=== PATIENT | female | born 1975 | race Caucasian/White ===

== ENCOUNTER 2017-05-20 06:52 | Emergency (ER) | payer OTHER ==
[~2017-05-20] VITALS: Ht 157.5 cm; Wt 87.1 kg
[2017-05-20 06:52] VITALS: BP_SYST 151
[2017-05-20] MEDS ORDERED: NACL 0.9% 1,000 ML IV ONE (07:16)
[2017-05-20] MEDS ORDERED: ASPIRIN 81 MG TAB.CHEW PO ONE (07:30)
[2017-05-20 07:43] LABS: BASOPHILS % (AUTO) 0.6 % (0.0-2.0); EOSINOPHILS # (AUTO) 0.1 K/uL (0.0-0.4); EOSINOPHILS % (AUTO) 1.5 % (0.0-4.0); HEMATOCRIT 41.3 % (36-48); HEMOGLOBIN 13.9 g/dL (12.0-16.0); LYMPHOCYTES # (AUTO) 2.2 K/uL (1.0-5.5); LYMPHOCYTES % (AUTO) 32.9 % (20.5-51.5); MEAN CORPUSCULAR HEMOGLOBIN 30 pg (27-31); MEAN CORPUSCULAR HGB CONC 34 % (32-36); MEAN CORPUSCULAR VOLUME 89 fL (79.0-98.0); MONOCYTES # (AUTO) 0.5 K/uL (0.0-1.0); MONOCYTES % (AUTO) 7.1 % (1.7-9.3); NEUTROPHILS % (AUTO) 57.9 % (40.0-70.0); PLATELET COUNT (AUTO) 240 K/uL (130-430); RED BLOOD CELL COUNT(AUTO) 4.64 MIL/uL (4.2-6.2); RED CELL DISTRIBUTION WIDTH 12.1 % (9.0-15.0); WHITE BLOOD COUNT (AUTO) 6.8 K/uL (4.8-10.8)
[2017-05-20 08:06] LABS: CREATININE 0.51 mg/dL (0.55-1.30); POTASSIUM 3.8 mmol/L (3.5-5.1)
[2017-05-20 08:10] LABS: PROTHROMBIN TIME 10.1 SECS (9.5-12.5)
[2017-05-20 08:22] LABS: ALBUMIN 3.2 g/dL (3.4-4.8); TOTAL BILIRUBIN 0.3 mg/dL (0.0-1.0)
[2017-05-20 09:20] VITALS: BP_SYST 140
== END 2017-05-20 09:20 | disposition home or self-care (01) ==
LOC: SED 06:52
DX: M25.512 Pain in left shoulder (principal)
CPT/HCPCS: 36415; 71045; 80053; 81025; 84484; 85025; 85610; 85730; 93005; 96360; 99285; J7030

== ENCOUNTER 2018-08-12 14:05 | Emergency (ER) | payer OTHER ==
[~2018-08-12] VITALS: Ht 157.5 cm; Wt 80.3 kg
[2018-08-12 14:05] VITALS: BP_SYST 141
--- NOTE | 2018-08-12 14:05 | NUR ---
BROUGHT BACK TO BED #5 AND TRIAGED. REPORT GIVEN TO GABY
--- NOTE | 2018-08-12 14:18 | NUR ---
PATIENT CAME IN FOR LACERATION ON RIGHT THUMB. PATIENT SAID SHE WAS WASHING DISHES AND CUT IT ON A GLASS CUP. PATIENT NOT COMPLAINING OF PAIN, SOB, NAUSEA, OR VOMITING. PATIENT ALERT AND ORIENTED X4. PATIENT ANXIOUS BECAUSE YOU CAN SEE THE VEINS. Addendum: 08/12/18 at 1424 by THERESA NO ACTIVE BLEEDING. BLEEDING IS CONTROLED.
--- NOTE | 2018-08-12 14:40 | NUR ---
LACERATION STARTED BLEEDING. GAVE PATIENT GAUZE AND TOLD TO APPLY PRESSURE.
--- NOTE | 2018-08-12 14:41 | NUR ---
ER Dr. MADDEN at bedside examining patient.
[2018-08-12] MEDS ORDERED: BACITRACIN/POLYMYXIN B SULFATE 30 GM TOPICAL OINT. TP ONE (15:00)
[2018-08-12] MEDS ORDERED: DIPH-TET-PERTUS Vaccine 0.5 ML VIAL (ADACEL) I.M. ONE (15:00)
[2018-08-12] MEDS ORDERED: BACITRACIN 1 GM OINT TP ONE (15:08)
--- NOTE | 2018-08-12 15:08 | NUR ---
Site to right thumb cleansed with ns. Site measures approximatel 1 cm. Non adherant dressing applied. Tetanus vaccination given.
--- NOTE | 2018-08-12 15:25 | NUR ---
Patient given written and verbal discharge instructions and verbalizes understanding. ER MD discussed with patient the results and treatment provided. Patient in stable condition. ID arm band removed. no Rx given. Patient educated on pain management and to follow up with PMD. Pain Scale 0/10. Opportunity for questions provided and answered. Medication side effect fact sheet provided.
[2018-08-12 15:26] VITALS: BP_SYST 141
== END 2018-08-12 15:25 | disposition home or self-care (01) ==
LOC: SED 14:05
DX: S61.001A Unspecified open wound of right thumb without damage to nail, initial encounter (principal); R03.0 Elevated blood-pressure reading, without diagnosis of hypertension; W25.XXXA Contact with sharp glass, initial encounter; Y93.89 Activity, other specified; Y92.89 Other specified places as the place of occurrence of the external cause; Y99.8 Other external cause status
CPT/HCPCS: 90715; 99283

== ENCOUNTER 2019-01-25 15:04 | Emergency (ER) | payer OTHER ==
[~2019-01-25] VITALS: Ht 157.5 cm; Wt 84.8 kg
[2019-01-25 15:08] VITALS: BP_SYST 129
--- NOTE | 2019-01-25 15:20 | NUR ---
Patient to ER bed 4 to gown for evaluation. Side rails up. Report given to FANTA Vyas.
--- NOTE | 2019-01-25 15:25 | NUR ---
pt arrives from home w/ c/o abd pain and nausea. Pt reports being dx w/ h. pylori and has finished tx. No other c/o at the moment
--- NOTE | 2019-01-25 15:30 | NUR ---
ER Dr. Lopez at bedside examining patient.
[2019-01-25] MEDS ORDERED: MAG HYDROX/AL HYDROX/SIMETH 30 ML, DICYCLOMINE HCL 20 MG, LIDOCAINE VISCOUS 2% 15ML (PO... PO ONE ×3 (15:45)
[2019-01-25] MEDS ORDERED: KETOROLAC TROMETHAMINE 60 MG/2 ML VIAL IM ONE (15:45)
--- NOTE | 2019-01-25 15:45 | NUR ---
Pt was taken to US accompanied by US tech.
[2019-01-25 15:55] LABS: BASOPHILS # (AUTO) 0.1 K/uL (0.0-0.2); BASOPHILS % (AUTO) 0.9 % (0.0-2.0); EOSINOPHILS # (AUTO) 0.2 K/uL (0.0-0.4); EOSINOPHILS % (AUTO) 3.4 % (0.0-4.0); HEMATOCRIT 39.4 % (36-48); HEMOGLOBIN 13.4 g/dL (12.0-16.0); LYMPHOCYTES # (AUTO) 2.5 K/uL (1.0-5.5); LYMPHOCYTES % (AUTO) 40.6 % (20.5-51.5); MEAN CORPUSCULAR HEMOGLOBIN 31 pg (27-31); MEAN CORPUSCULAR HGB CONC 34 % (32-36); MEAN CORPUSCULAR VOLUME 90 fL (79.0-98.0); MONOCYTES # (AUTO) 0.6 K/uL (0.0-1.0); MONOCYTES % (AUTO) 9.6 % (1.7-9.3); NEUTROPHILS # (AUTO) 2.8 K/uL (1.8-7.7); NEUTROPHILS % (AUTO) 45.5 % (40.0-70.0); PLATELET COUNT (AUTO) 244 K/uL (130-430); RED BLOOD CELL COUNT(AUTO) 4.38 MIL/uL (4.2-6.2); WHITE BLOOD COUNT (AUTO) 6.2 K/uL (4.8-10.8)
--- NOTE | 2019-01-25 16:00 | NUR ---
pt remains in US
[2019-01-25 16:34] LABS: ALBUMIN 3.7 g/dL (3.4-4.8); CREATININE 0.57 mg/dL (0.55-1.30); POTASSIUM 3.7 mmol/L (3.5-5.1); TOTAL BILIRUBIN 0.3 mg/dL (0.0-1.0)
--- NOTE | 2019-01-25 16:58 | NUR ---
pt returned back from US.
--- NOTE | 2019-01-25 17:00 | NUR ---
Medicated the pt per MD order. Will reassess
[2019-01-25 17:54] VITALS: BP_SYST 134
--- NOTE | 2019-01-25 17:56 | NUR ---
Patient given written and verbal discharge instructions and verbalizes understanding. ER MD discussed with patient the results and treatment provided. Patient in stable condition. ID arm band removed. Patient educated on pain management and to follow up with PMD. Pain Scale 3/10. Opportunity for questions provided and answered. Medication side effect fact sheet provided.
== END 2019-01-25 17:56 | disposition home or self-care (01) ==
LOC: SED 15:04
DX: N83.201 Unspecified ovarian cyst, right side (principal); N83.202 Unspecified ovarian cyst, left side; E07.9 Disorder of thyroid, unspecified; F41.9 Anxiety disorder, unspecified
CPT/HCPCS: 36415; 76700; 76830; 76857; 80053; 81002; 81025; 83690; 85025; 96372; 99284; J1885; J2001

== ENCOUNTER 2019-02-24 02:22 | Emergency (ER) | payer OTHER ==
[~2019-02-24] VITALS: Ht 157.5 cm; Wt 81.6 kg
[2019-02-24 03:20] VITALS: BP_SYST 139
--- NOTE | 2019-02-24 03:23 | NUR ---
Pt placed to ER waiting room in stable condition.
--- NOTE | 2019-02-24 03:30 | NUR ---
Pt placed to ER hallway 1. Epigastric pain with nausea x 5 hours [employer]. Seen here 2 weeks ago for same s/s. No active N/V at this time.
--- NOTE | 2019-02-24 03:45 | NUR ---
Dr. Pierce at bedside.
[2019-02-24] MEDS ORDERED: NACL 0.9% 1,000 ML IV ONE (04:00)
[2019-02-24] MEDS ORDERED: ONDANSETRON HCL 4 MG/2 ML VIAL IVP ONE (04:00)
[2019-02-24] MEDS ORDERED: PANTOPRAZOLE SODIUM 40 MG/VIAL (PROTONIX) IVP ONE (04:00)
[2019-02-24] MEDS ORDERED: MORPHINE 2 MG/ML INJ. SYRINGE IVP ONE (04:00)
[2019-02-24 04:27] LABS: BASOPHILS # (AUTO) 0.1 K/uL (0.0-0.2); BASOPHILS % (AUTO) 0.8 % (0.0-2.0); EOSINOPHILS # (AUTO) 0.1 K/uL (0.0-0.4); EOSINOPHILS % (AUTO) 1.7 % (0.0-4.0); HEMATOCRIT 36.7 % (36-48); HEMOGLOBIN 12.5 g/dL (12.0-16.0); LYMPHOCYTES # (AUTO) 3.1 K/uL (1.0-5.5); LYMPHOCYTES % (AUTO) 40.4 % (20.5-51.5); MEAN CORPUSCULAR HEMOGLOBIN 31 pg (27-31); MEAN CORPUSCULAR HGB CONC 34 % (32-36); MEAN CORPUSCULAR VOLUME 89 fL (79.0-98.0); MONOCYTES # (AUTO) 0.7 K/uL (0.0-1.0); MONOCYTES % (AUTO) 9.4 % (1.7-9.3); NEUTROPHILS # (AUTO) 3.7 K/uL (1.8-7.7); NEUTROPHILS % (AUTO) 47.7 % (40.0-70.0); PLATELET COUNT (AUTO) 233 K/uL (130-430); RED BLOOD CELL COUNT(AUTO) 4.11 MIL/uL (4.2-6.2); RED CELL DISTRIBUTION WIDTH 13.4 % (9.0-15.0); WHITE BLOOD COUNT (AUTO) 7.7 K/uL (4.8-10.8)
[2019-02-24 04:44] LABS: CALCIUM 8.6 mg/dL (8.4-11.0); CREATININE 0.52 mg/dL (0.55-1.30); POTASSIUM 3.5 mmol/L (3.5-5.1)
[2019-02-24 05:00] LABS: ALBUMIN 3.6 g/dL (3.4-4.8); TOTAL BILIRUBIN 0.3 mg/dL (0.0-1.0)
[2019-02-24 05:11] LABS: BILIRUBIN,URINE NEGATIVE (NEGATIVE); BLOOD, URINE 2+ (NEGATIVE); CLARITY/URINE CLEAR (CLEAR); COLOR,URINE YELLOW (YELLOW); GLUCOSE,URINE NEGATIVE (NEGATIVE); KETONES,URINE NEGATIVE (NEGATIVE); LEUKOCYTE ESTERASE ,URINE NEGATIVE (NEGATIVE); NITRITE, URINE NEGATIVE (NEGATIVE); PROTEIN URINE NEGATIVE (NEGATIVE); UROBILINOGEN,URINE 0.2 (0.2-1.0)
--- NOTE | 2019-02-24 05:15 | NUR ---
Pt to U/S via W/C.
[2019-02-24 05:18] LABS: BACTERIA,URINE FEW /HPF (None Seen); WBC,URINE 0-3 /HPF (0-3)
--- NOTE | 2019-02-24 05:23 | NUR ---
Pt returns from U/S. Verbalizes improvement in pain, no needs verbalized at this time.
--- NOTE | 2019-02-24 05:41 | NUR ---
Dr. Pierce speaking to pt about results.
[2019-02-24 05:54] VITALS: BP_SYST 139
--- NOTE | 2019-02-24 05:54 | NUR ---
Patient given written and verbal discharge instructions and verbalizes understanding. ER MD Dr. Pierce discussed with patient the results and treatment provided. Patient in stable condition. ID arm band removed. IV catheter removed intact and dressing applied, no active bleeding. Rx of norco, zofran and protonix given. Patient educated on pain management and to follow up with PMD. Pain Scale 0/10. Opportunity for questions provided and answered. Medication side effect fact sheet provided.
== END 2019-02-24 05:54 | disposition home or self-care (01) ==
LOC: SED 02:22
DX: R10.13 Epigastric pain (principal); R11.0 Nausea
CPT/HCPCS: 36415; 76700; 80053; 81000; 81025; 83690; 84484; 85025; 93005; 96374; 96375; 99284; C9113; J2270; J2405; J7030

== ENCOUNTER 2022-05-17 10:36 | Emergency (ER) | payer OTHER ==
[~2022-05-17] VITALS: Ht 157.5 cm; Wt 80.7 kg
[2022-05-17 10:39] VITALS: BP_SYST 141
--- NOTE | 2022-05-17 11:10 | NUR ---
Patient to ER bed H1 to gown for evaluation. Side rails up.
--- NOTE | 2022-05-17 11:20 | NUR ---
ER DR. MARTEL EXAMINING PT
[2022-05-17] MEDS ORDERED: KETOROLAC TROMETHAMINE 60 MG/2 ML VIAL IM ONE (11:30)
[2022-05-17] MEDS ORDERED: HYDR-3917 PO (12:04)
[2022-05-17] MEDS ORDERED: IBUP-1971 PO (12:04)
[2022-05-17 12:22] VITALS: BP_SYST 141
--- NOTE | 2022-05-17 12:23 | NUR ---
Patient given written and verbal discharge instructions and verbalizes understanding. ER MD discussed with patient the results and treatment provided. Patient in stable condition. ID arm band removed. Rx of NORCO AND IBUPROFEN given. Patient educated on pain management and to follow up with PMD. Pain Scale 0/10. Opportunity for questions provided and answered. Medication side effect fact sheet provided.
== END 2022-05-17 12:23 | disposition home or self-care (01) ==
LOC: SED 10:36
DX: R10.9 Unspecified abdominal pain (principal); K21.9 Gastro-esophageal reflux disease without esophagitis; Z79.899 Other long term (current) drug therapy
CPT/HCPCS: 99283; 96372; J1885

== ENCOUNTER 2023-09-04 22:54 | Emergency (ER) | payer OTHER ==
[~2023-09-04] VITALS: Ht 157.5 cm; Wt 80.3 kg
[~2023-09-04 22:54] MED LIST: HYDR-3917 PO; IBUP-1971 PO
[2023-09-04 23:14] VITALS: BP_SYST 151; PULSE 100; RESP 17; TEMP 98.5; O2SAT 97
[2023-09-04 23:59] LABS: INFLUENZA TYPE A Negative (NEGATIVE); INFLUENZA TYPE B NEGATIVE (NEGATIVE)
[2023-09-05] MEDS ORDERED: AUG875 PO
[2023-09-05] MEDS ORDERED: IBUP-1970 PO
[2023-09-05] MEDS: DEXAMETHASONE SOD PHOSPHATE 10 MG/ML VIAL IM ONE (00:05)
[2023-09-05 00:06] LABS: STREPTOCOCCUS A SCREEN (RAPID) NEGATIVE (NEGATIVE)
[2023-09-05] MEDS: KETOROLAC TROMETHAMINE 60 MG/2 ML VIAL IM ONE (00:06)
[2023-09-05 00:28] VITALS: BP_SYST 151; PULSE 100; RESP 17; TEMP 98.5; O2SAT 97
== END 2023-09-05 00:28 | disposition home or self-care (01) ==
LOC: SED 22:54
DX: J02.9 Acute pharyngitis, unspecified (principal); Z20.822 Contact with and (suspected) exposure to COVID-19; K21.9 Gastro-esophageal reflux disease without esophagitis; Z79.899 Other long term (current) drug therapy
CPT/HCPCS: 99284; 87426; 86403; 36415; 87081; 87804 ×2; 96372; J1100; J1885